=== PATIENT | female | born 1985 | race African-American/Black ===

== ENCOUNTER 2017-08-23 19:09 | Emergency (ER) | payer OTHER ==
[~2017-08-23] VITALS: Ht 172.7 cm; Wt 79.8 kg
[2017-08-23 19:40] VITALS: BP 122/75
[2017-08-23] MEDS ORDERED: VIGAMOX3 ML OPH (20:24)
[2017-08-23] MEDS ORDERED: PATADAY2.5 ML OPH (20:24)
--- NOTE | 2017-08-23 20:24 | ED EYE COMPLAINT ---
History of Present Illness General Chief Complaint: Eye Problems Stated Complaint: ANTONIETTA EYE PAIN Source: patient Exam Limitations: no limitations Vital Signs & Intake/Output Vital Signs & Intake/Output Vital Signs Date Time Temp Pulse Resp B/P B/P Pulse O2 O2 Flow FiO2 Mean Ox Delivery Rate 08/23 1940 97.6 86 18 122/75 99 Room Air ED Intake and Output 08/24 0000 08/23 1200 Intake Total 0 Output Total Balance 0 Intake, Oral 0 Patient 176 lb Weight Weight Estimated Measurement Method Allergies Coded Allergies: MDX - Nickel (NICKEL) (Mild, UNKNOWN 01/16/15) Reconcile Medications Moxifloxacin Hydrochloride (Vigamox) 0.5 % DROPS 1 GTT OPH TID CONJUNCTIIVTIS Olopatadine HCl (Pataday) 0.2 % DROPS 1 GTT OPH DAILY PRN EYE IRRITATION REDNESS Triage Note: RECEIVED 32 YO FEMALE REPORTS SHE WENT TO SLEEP WITH CONTACTS IN HER EYES, AND WOKE UP WITH BOTH EYES IRRITATED AND PAINFUL Triage Nurses Notes Reviewed? yes Onset: Abrupt Duration: day(s): (1), constant, continues in ED, getting worse Timing: single episode today Injury Environment: home Severity: moderate, severe Severity Numbers: 6 No Modifying Factors: none Left Eye Associated Symptoms: burning, pain, sensitivity to light Right Eye Associated Symptoms: burning, pain, sensitivity to light LMP (ages 10-50): unknown : No Patient currently breastfeeds: No HPI: 32-year-old female with no past medical history presents for evaluation of bilateral eye pain swelling and redness. Patient states symptoms started this morning because she forgot to take her contacts out of her eyes. She states that she slept with her contacts in. There was no discharge but both fries are burning and photophobic. No pain with extraocular motion no changes in vision but she's been unable to wear her contacts. She's had similar symptoms in the past. She is not taking any medicine for this. No sick contacts no fever no eye trauma. (Ciaran Moore) Past History Travel History Traveled to [place] past 21 day No Medical History Any Pertinent Medical History? see below for history Neurological: NONE EENT: NONE Cardiovascular: NONE Respiratory: NONE Gastrointestinal: NONE Hepatic: NONE Renal: NONE Musculoskeletal: NONE Psychiatric: NONE Endocrine: NONE Blood Disorders: NONE Cancer(s): NONE Surgical History Surgical History: non-contributory Psychosocial History What is your primary language Cymro Tobacco Use: Current Daily Use Daily Tobacco Use Amount/Type: => 5 Cigarettes daily Family History Hx Contributory? No (Ciaran Moore) Review of Systems Review of Systems Constitutional: Reports: no symptoms. Eyes: Reports: see HPI, inflammation, pain, photophobia. Ear: Reports: no symptoms. Nose: Reports: no symptoms. Mouth: Reports: no symptoms. Throat: Reports: no symptoms. Respiratory: Reports: no symptoms. Cardiovascular: Reports: no symptoms. GI: Reports: no symptoms. Genitourinary: Reports: no symptoms. Musculoskeletal: Reports: no symptoms. Skin: Reports: no symptoms. Neurological/Psychological: Reports: no symptoms. Hematologic/Endocrine: Reports: no symptoms. Immunologic/Allergic: Reports: no symptoms. All Other Systems: Reviewed and Negative (Ciaran Moore) Physical Exam General Appearance: well developed/nourished, no apparent distress, alert, awake General Inspection: periorbital swelling Eyelid: normal inspection, everted for exam Conjunctiva/Sclera: normal inspection, injected Cornea: normal inspection EOM: intact Pupil: normal accommodation, normal pupil, PERRL Anterior Chamber: normal inspection General Inspection: normal inspection Eyelid: normal inspection, everted for exam Conjunctiva/Sclera: injected Cornea: normal inspection EOM: intact Pupil: normal accommodation, normal pupil, PERRL Anterior Chamber: normal inspection Posterior Segments: normal funduscopic Physical Exam Head: atraumatic, normal appearance Ears: Bilateral: canal normal, Tympanic normal. Nose: normal inspection Mouth/Throat: normal mouth inspection, pharynx normal Neck: normal inspection, supple, full range of motion Cardiovascular/Respiratory: normal breath sounds, normal peripheral pulses, regular rate/rhythm Neurologic/Psych: no motor/sensory deficits, awake, alert, oriented x 3, normal gait, normal mood/affect Skin: intact, normal color, warm/dry (Ciaran Moore) Progress Differential Diagnosis: corneal abrasion, corneal foreign body, conjunctivitis Plan of Care: Patient seen and evaluated. She Her contacts in overnight and woke up with bilateral eye irritation and redness. There is no signs of discharge. Extra ocular motion intact without pain. Patient was instructed to keep her contacts out and wear glasses. Patient was given a drop of tetracaine in each eye and reports improvement in her symptoms. She'll be given a prescription for Vigamox and Pataday. Advised her to apply warm compresses to her eyes. Tylenol or Profen for pain follow-up with primary care doctor or eye doctor. Discussed return precautions patient agrees the plan (Ciaran Moore) Departure Departure Disposition: HOME OR SELF CARE Condition: Stable Clinical Impression Primary Impression: Conjunctivitis Qualifiers: Conjunctivitis type: acute Acute conjunctivitis type: unspecified Laterality: bilateral Qualified Code: H10.33 - Unspecified acute conjunctivitis, bilateral Referrals: Patient Has No Primary Care Dr (PCP/Family) Additional Instructions: Apply antibiotic drops as directed for the full course. You can use Pataday drops once daily as needed for redness and irritation. Tylenol or ibuprofen for pain. Do not wear contacts until symptoms are resolved. Make a follow-up appointment with YOUr primary care doctor or eye doctor this week. Monitor symptoms return with any concerns. Departure Forms: Customer Survey General Discharge Information Prescriptions: Current Visit Scripts Olopatadine HCl (Pataday) 1 GTT OPH DAILY PRN EYE IRRITATION REDNESS #1 BOT Moxifloxacin Hydrochloride (Vigamox) 1 GTT OPH TID #3 ML (Ciaran Moore) PA/BIOLOGICAL SCIENCES INSTRUCTOR Co-Sign Statement Statement: ED Attending supervision documentation- [] I saw and evaluated the patient. I have also reviewed all the pertinent lab results and diagnostic results. I agree with the findings and the plan of care as documented in the PA's/BIOLOGICAL SCIENCES INSTRUCTOR's documentation. [x] I have reviewed the ED Record and agree with the PA's/BIOLOGICAL SCIENCES INSTRUCTOR's documentation. [] Additions or exceptions (if any) to the PAs/BIOLOGICAL SCIENCES INSTRUCTOR's note and plan are summarized below: [] (Pinky SIMPSON,Jeffrey Hough)
== END 2017-08-23 20:51 ==
LOC: ERH 19:09
DX: H10.9 Unspecified conjunctivitis (principal)